=== PATIENT | male | born 1960 ===

== ENCOUNTER 2018-12-27 09:53 | Outpatient (CLI) | payer OTHER ==
[2018-12-27] MEDS ORDERED: Sodium Chloride 0.9% 15 ML NEB ONE (15:00)
--- NOTE | 2018-12-28 00:57 | HP ---
HISTORY OF PRESENT ILLNESS: Mr. Henri Woodall is a very pleasant 58-year-old gentleman, who presents to the [facility] for evaluation of a large wound of the left lower leg. The patient states that he has been followed at [facility]. He states that he would like to transfer his care to the [facility] because he is now taking care of his mother in [place], [place]. The patient states that the wound developed from complications after he was scratched by a dog. He states that he subsequently developed sepsis and an abscess of the left lower leg was drained. 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 The patient states that he has had repeated infections associated with his wound. He states that one point tendon was visible within the wound margins. The patient states that he has been recommended to undergo split-thickness skin graft placement for treatment of the wound. He states that prior to skin graft placement, negative pressure therapy was initiated, which resulted in a decrease in the dimensions of the wound. The patient states that he has not been able to continue with negative pressure therapy. PAST MEDICAL HISTORY: 1. Diabetes mellitus. 2. Hypertension. 3. Anemia. 4. Arthritis. 5. Irritable bowel syndrome. 6. History of obstructive sleep apnea. 7. Benign prostatic hypertrophy. 8. Meniere. PAST SURGICAL HISTORY: 1. Gastric bypass. 2. Cholecystectomy. 3. Hemorrhoidectomy. MEDICATIONS: 1. Gabapentin. 2. Promethazine. 3. Flomax. 4. Nexium. 5. Ropinirole. 6. Metoprolol. 7. Glipizide. 8. Plavix. 9. Diclofenac. 10. Atorvastatin. 11. Oxycodone. 12. Xtampza. 13. Doxycycline. 14. Ciprofloxacin. ALLERGIES: NO KNOWN DIAGNOSED ALLERGIES. SOCIAL HISTORY: Negative for tobacco or EtOH use. FAMILY HISTORY: Family history is significant for diabetes mellitus. The patient states that his mother was diagnosed with diabetes mellitus. REVIEW OF SYSTEMS: In addition to the above medications, the patient states that he also takes Tylenol as needed for pain. PHYSICAL EXAMINATION: VITAL SIGNS: Temperature 98.1, pulse 78, respirations 20, blood pressure 140/75. GENERAL: A 58-year-old gentleman, lying on table in examination room, in no acute distress. HEENT: Normocephalic and atraumatic. NECK: No nuchal rigidity. CHEST: Clear to auscultation. CV: Regular rate and rhythm. ABDOMEN: Soft. EXTREMITIES: Wound of the left anterior lower leg is present which measures approximately 21 x 14 cm. Granulation tissue is present within the wound margins. No purulent drainage is associated with the wound. No cellulitis of the left lower extremity is appreciated. No maceration of the skin of the periwound is noted. NEUROLOGIC: Grossly nonfocal. ASSESSMENT AND PLAN: 1. Large wound of left anterior lower leg as described above. Dressing changes of Santyl will be continued on a daily basis after cleansing and irrigation. Arrangements will be made for the initiation of negative pressure therapy with dressing changes of the wound VAC 3 times per week with the assistance of Home Health. I will see Mr. Woodall again 2 weeks after negative pressure therapy has been initiated. The patient understands and is in agreement with the preceding treatment plan. 2. Diabetes mellitus. Accu-Cheks will be obtained at the time of the patient's clinic visits. The patient has been reminded that for optimal wound healing, his blood glucoses should remain below 150. 3. Hypertension. 4. Anemia. 5. Arthritis. 6. Irritable bowel syndrome. 7. History of obstructive sleep apnea. 8. Benign prostatic hypertrophy. 9. Meniere's disease. Job ID: [id number]
== END 2018-12-27 09:54 | disposition home or self-care (01) ==
LOC: WCC 09:53
PROVIDERS: ATTEND Family Medicine
DX: S81.802D Unspecified open wound, left lower leg, subsequent encounter (principal); E11.9 Type 2 diabetes mellitus without complications; I10 Essential (primary) hypertension; D64.9 Anemia, unspecified; N40.0 Benign prostatic hyperplasia without lower urinary tract symptoms; K58.9 Irritable bowel syndrome, unspecified; M19.90 Unspecified osteoarthritis, unspecified site; H81.09 Meniere's disease, unspecified ear; Z87.09 Personal history of other diseases of the respiratory system
CPT/HCPCS: 97602; 99203; A4218; G0463

== ENCOUNTER 2019-01-30 13:24 | Outpatient (CLI) | payer OTHER ==
--- NOTE | 2019-01-30 13:59 | PRG ---
DATE OF SERVICE: 01/30/2019 SUBJECTIVE: Mr. Henri Woodall is a very pleasant 58-year-old gentleman, who presents to the Wound Center for evaluation of a large wound of the left lower leg. The patient previously stated that he had been followed at [facility]. The patient stated that he transferred his care to the [facility] after taking care of his mother in [place], [place]. The patient stated that the wound developed from complications after he was scratched by a dog. He stated that he subsequently developed sepsis and an abscess of the left lower leg was drained. 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 The patient reported repeated infections associated with his wound. He stated that at one point tendon was visible within the wound margins. The patient stated that he had been recommended to undergo split-thickness skin graft placement for the treatment of his wound. He stated that prior to skin graft placement, negative pressure therapy had been initiated, which resulted in a decrease in the dimensions of the wound. At the time of the patient's initial presentation to the Wound Center, Mr. Woodall stated that he had not been able to continue with negative pressure therapy. Since the patient's last visit, negative pressure therapy has been initiated and the patient is receiving dressing changes of the wound VAC with the assistance of Home Health 2 times per week. The patient states that his mother 5 days ago. OBJECTIVE: VITAL SIGNS: Temperature 98.1, pulse 95, respirations 19, and blood pressure 144/59. Accu-Chek 137. EXTREMITIES: A wound of the left anterior lower leg is present which measures approximately 14.0 x 17.0 cm. Granulation tissue is visible within the wound margins. No purulent drainage is associated with the wound. No cellulitis of the left lower extremity is appreciated. No maceration of the skin of the periwound is noted. ASSESSMENT AND PLAN: 1. Large wound of left anterior lower leg as described above. Negative pressure therapy will be continued with dressing changes of the wound VAC 2 times per week with the assistance of Home Health. Arrangements will be made for the patient to be seen in consultation by Dr. Kendell Hill of Infectious Diseases. I have also recommended to Mr. Woodall that he undergo split-thickness skin graft placement for closure of his wound. 2. Diabetes mellitus. The patient's Accu-Chek in clinic today is 137. The patient has been reminded that for optimal wound healing, his blood glucoses should remain below 150. 3. Hypertension. 4. Anemia. 5. Arthritis. 6. Irritable bowel syndrome. 7. History of obstructive sleep apnea. 8. Benign prostatic hypertrophy. 9. Meniere disease. Job ID: [id number]
[2019-01-30] MEDS ORDERED: Sodium Chloride 0.9% 15 ML NEB ONE (18:00)
== END 2019-01-30 13:25 | disposition home or self-care (01) ==
LOC: WCC 13:24
PROVIDERS: ATTEND Family Medicine
DX: T81.89XD Other complications of procedures, not elsewhere classified, subsequent encounter (principal); E11.9 Type 2 diabetes mellitus without complications; I10 Essential (primary) hypertension; D64.9 Anemia, unspecified; M19.90 Unspecified osteoarthritis, unspecified site; K58.9 Irritable bowel syndrome, unspecified; N40.0 Benign prostatic hyperplasia without lower urinary tract symptoms; H81.09 Meniere's disease, unspecified ear; Z86.69 Personal history of other diseases of the nervous system and sense organs
CPT/HCPCS: 36416; 97602; A4218